=== PATIENT | female | born 1970 | race African-American/Black ===

== ENCOUNTER 2023-08-01 08:51 | Outpatient (CLI) | payer OTHER, BC | END 2023-08-01 08:52 | disposition home or self-care (01) | LOC: CSHCT 08:51 | PROVIDERS: ATTEND Internal Medicine Critical Care Medicine | DX: J84.9 Interstitial pulmonary disease, unspecified (principal); J84.10 Pulmonary fibrosis, unspecified; J47.9 Bronchiectasis, uncomplicated; J94.8 Other specified pleural conditions; J98.4 Other disorders of lung | CPT/HCPCS: 71250; 94010; 94726; 94729; 94760 ==